=== PATIENT | male | born 2000 | race Caucasian/White ===

== ENCOUNTER 2022-09-15 11:38 | Emergency (ER) | payer OTHER ==
[2022-09-15] MEDS ORDERED: Sodium Chloride 0.9% 10 ML Syringe FLUSH PRN (11:59)
[2022-09-15] MEDS ORDERED: Sodium Chloride 0.9% 2.5 ML Syringe FLUSH PRN (11:59)
[2022-09-15] MEDS ORDERED: Sodium Chloride 0.9% 1,000 ML IV STA (12:00)
[2022-09-15] MEDS ORDERED: methylPREDNISolone Sodium Succinate 125 MG/2 ML SDV IVPUSH STA (12:01)
[2022-09-15] MEDS ORDERED: Ampicillin/Sulbactam Na 3 GM in Sodium Chloride 0.9% 50 ML IV STA (12:08)
[2022-09-15] MEDS ORDERED: Ampicillin/Sulbactam Na 3 GM in Sodium Chloride 0.9% 100 ML IV STA (12:19)
[2022-09-15] MEDS ORDERED: Sodium Chloride 0.9% 1,000 ML IV ONE (12:38)
[2022-09-15 12:53] LABS: CARBON DIOXIDE,CO2 27.3 mmol/L (21.0-32.0); POTASSIUM,K 4.3 mmol/L (3.5-5.1)
[2022-09-15] MEDS ORDERED: Iopamidol 755 MG/ML 500 ML Multipack Bottle IVPUSH ONE (13:12)
[2022-09-15 13:36] LABS: CORONAVIRUS COVID-19 NAA NEGATIVE (NEGATIVE); INFLUENZA A NAA NEGATIVE (NEGATIVE); INFLUENZA B NAA NEGATIVE (NEGATIVE)
== END 2022-09-15 16:22 ==
LOC: MW.ED 11:38
DX: J35.1 Hypertrophy of tonsils (principal); H70.92 Unspecified mastoiditis, left ear; H65.02 Acute serous otitis media, left ear; R74.01 Elevation of levels of liver transaminase levels; B27.99 Infectious mononucleosis, unspecified with other complication; Z20.822 Contact with and (suspected) exposure to COVID-19
CPT/HCPCS: 0240U; 36415; 70491; 80053; 83605; 85025; 85610; 86308; 87040; 87070; 87651; 96361; 96365; 96375; 99285; J0295; J2930; J3490; J7030; J7050; Q9967